=== PATIENT | male | born 1960 | race Caucasian/White ===

== ENCOUNTER 2019-12-13 19:43 | Emergency (ER) | payer SELFPAY ==
[~2019-12-13] VITALS: Ht 170.2 cm; Wt 71.7 kg
[2019-12-13 20:02] VITALS: Ht 170.2 cm; Wt 71.7 kg
[2019-12-13 21:12] VITALS: BP 112/71
== END 2019-12-13 21:12 | disposition home or self-care (01) ==
LOC: ED 19:43
DX: S61.432A Puncture wound without foreign body of left hand, initial encounter (principal); W34.00XA Accidental discharge from unspecified firearms or gun, initial encounter; Y93.89 Activity, other specified; Y92.89 Other specified places as the place of occurrence of the external cause; Y99.8 Other external cause status
CPT/HCPCS: 90715; J1885; Q0092